=== PATIENT | female | born 1940 | race Caucasian/White ===

== ENCOUNTER 2020-09-01 06:54 | Day surgery (SDC) | payer MEDICARE ==
[2020-08-31 12:00] LABS: ALBUMIN 3.5 G/DL (3.4-5.0); ANION GAP 8 (8-16); BLOOD UREA NITROGEN 32 MG/DL (7-18); BUN/CREATININE RATIO 19.5 (6.6-38.0); CALCIUM 8.9 MG/DL (8.5-10.1); CHLORIDE 110 MMOL/L (99-107); CREATININE 1.64 MG/DL (0.40-0.90); GLUCOSE 105 MG/DL (70-104); SODIUM 143 MMOL/L (135-145); TOTAL CARBON DIOXIDE 25.4 MMOL/L (24-32); eGFR 30 ML/MIN
[2020-08-31 12:01] LABS: BASOPHILS # (AUTO) 0.1 X10'3 (0-0.2); BASOPHILS % (AUTO) 0.7 % (0-1); EOSINOPHILS # (AUTO) 0.3 X10'3 (0-0.9); HEMATOCRIT 39.3 % (35.0-45.0); HEMOGLOBIN 13.1 g/dl (12.0-16.0); LYMPHOCYTES # (AUTO) 1.5 X10'3 (1.1-4.8); LYMPHOCYTES % (AUTO) 19.9 % (21-51); MEAN CORPUSCULAR HEMOGLOBIN 29.9 PG (27.0-31.0); MEAN CORPUSCULAR HGB CONC 33.3 g/dL (33.0-36.5); MEAN CORPUSCULAR VOLUME 89.8 FL (78-98); MEAN PLATELET VOLUME 8.9 FL (7.4-10.4); MONOCYTES # (AUTO) 0.9 X10'3 (0-0.9); MONOCYTES % (AUTO) 11.7 % (2-12); NEUTROPHILS % (AUTO) 63.7 % (42-75); PLATELET COUNT 201 X10'3 (140-440); RED BLOOD COUNT 4.38 X10'6 (4.20-5.60); RED CELL DISTRIBUTION WIDTH 14.9 % (11.5-14.5); WHITE BLOOD COUNT 7.8 X10'3 (4.5-11.0)
[2020-08-31 12:07] LABS: PARTIAL THROMBOPLASTIN TIME 25 SECONDS (22-32)
[2020-09-01] VITALS (10 sets, daily range): BP systolic 111–159; BP diastolic 45–75
[~2020-09-01] VITALS: Ht 175.3 cm; Wt 102.6 kg
[2020-09-01] MEDS ORDERED: normal saline 1000ml 1,000 ML IV SCH (07:35)
[2020-09-01] MEDS ORDERED: ceFAZolin 2gm in dextrose, iso 50 ML IV ONE ×2 (07:35→08:37)
[2020-09-01] MEDS ORDERED: VIT1CAPS4 PO (07:52)
[2020-09-01] MEDS ORDERED: BENA20TA2 PO (07:52)
[2020-09-01] MEDS ORDERED: HYDR12.55 PO (07:52)
[2020-09-01] MEDS ORDERED: OMEG1CAP13 PO (07:52)
[2020-09-01] MEDS ORDERED: RALO60TA13 PO (07:52)
[2020-09-01] MEDS ORDERED: CALC600T22 PO (07:52)
[2020-09-01] MEDS ORDERED: ATEN50TA PO (07:52)
[2020-09-01] MEDS ORDERED: LUTE6CAP PO (07:52)
[2020-09-01] MEDS ORDERED: CHOL100046 PO (07:52)
[2020-09-01] MEDS ORDERED: LACT1CAP65 PO (07:52)
[2020-09-01] MEDS ORDERED: APIX2.5T PO (07:52)
[2020-09-01] MEDS ORDERED: ASPI-1071 PO (07:52)
[2020-09-01] MEDS ORDERED: ceFAZolin 1000mg inj ONE (08:37)
[2020-09-01] MEDS ORDERED: midazolam 2 mg/2 ml injection ONE (08:37)
[2020-09-01] MEDS ORDERED: fentaNYL/PF 50MCG/1 ML 2ML syringe ONE ×2 (08:37→10:58)
[2020-09-01] MEDS ORDERED: LIDOcaine 1% W/epiNEPHrine 1:100,000 20ml vial ONE ×2 (08:37→10:58)
[2020-09-01] MEDS ORDERED: iohexol 350 MG/ML 50ML vial IV ONE (09:48)
[2020-09-01] MEDS ORDERED: vancomycin/NS 1 GM ADD-VANTAGE 250 ML IV ONE (13:00)
== END 2020-09-01 16:00 | disposition home or self-care (01) ==
LOC: SSTAY O 06:54
PROVIDERS: ATTEND Internal Medicine Cardiovascular Disease
DX: I49.5 Sick sinus syndrome (principal); I48.0 Paroxysmal atrial fibrillation; Z45.09 Encounter for adjustment and management of other cardiac device; I12.9 Hypertensive chronic kidney disease with stage 1 through stage 4 chronic kidney disease, or unspecified chronic kidney disease; N18.9 Chronic kidney disease, unspecified; K21.9 Gastro-esophageal reflux disease without esophagitis; M10.9 Gout, unspecified; Z85.828 Personal history of other malignant neoplasm of skin; Z96.651 Presence of right artificial knee joint; Z98.890 Other specified postprocedural states; Z98.51 Tubal ligation status; Z79.82 Long term (current) use of aspirin; Z79.01 Long term (current) use of anticoagulants; Z79.899 Other long term (current) drug therapy; Z87.891 Personal history of nicotine dependence; Z88.8 Allergy status to other drugs, medicaments and biological substances; Z82.49 Family history of ischemic heart disease and other diseases of the circulatory system
CPT/HCPCS: 33208; 33286; 36415; 71046; 80048; 85025; 85610; 85730; 93005; 99152; 99153; C1785; C1894; C1898; J0690; J2250; J3010; J3370; Q9967; A4565; A4620; A6258; A6449

== ENCOUNTER 2020-09-03 10:10 | Emergency (ER) | payer MEDICARE ==
[~2020-09-03] VITALS: Ht 175.3 cm; Wt 82.0 kg
[~2020-09-03 10:10] MED LIST: APIX2.5T PO; ASPI-1071 PO; ATEN50TA PO; BENA20TA2 PO; CALC600T22 PO; CHOL100046 PO; HYDR12.55 PO; LACT1CAP65 PO; LUTE6CAP PO; OMEG1CAP13 PO; RALO60TA13 PO; VIT1CAPS4 PO
[2020-09-03 11:24] LABS: BASOPHILS % (AUTO) 0.5 % (0-1); EOSINOPHILS # (AUTO) 0.3 X10'3 (0-0.9); EOSINOPHILS % (AUTO) 3.4 % (0-6); HEMATOCRIT 37.1 % (35.0-45.0); HEMOGLOBIN 12.5 g/dl (12.0-16.0); LYMPHOCYTES # (AUTO) 0.9 X10'3 (1.1-4.8); LYMPHOCYTES % (AUTO) 11.9 % (21-51); MEAN CORPUSCULAR HEMOGLOBIN 30.1 PG (27.0-31.0); MEAN CORPUSCULAR HGB CONC 33.7 g/dL (33.0-36.5); MEAN CORPUSCULAR VOLUME 89.3 FL (78-98); MEAN PLATELET VOLUME 8.3 FL (7.4-10.4); MONOCYTES # (AUTO) 0.9 X10'3 (0-0.9); MONOCYTES % (AUTO) 11.8 % (2-12); NEUTROPHILS # (AUTO) 5.7 X10'3 (1.8-7.7); NEUTROPHILS % (AUTO) 72.4 % (42-75); PLATELET COUNT 174 X10'3 (140-440); RED BLOOD COUNT 4.16 X10'6 (4.20-5.60); RED CELL DISTRIBUTION WIDTH 14.4 % (11.5-14.5); WHITE BLOOD COUNT 7.9 X10'3 (4.5-11.0)
[2020-09-03 11:38] LABS: ALANINE AMINOTRANSFERASE 20 U/L (12-78); ALBUMIN 3.2 G/DL (3.4-5.0); ALBUMIN/GLOBULIN RATIO 0.9 (1.1-1.5); ALKALINE PHOSPHATASE 75 IU/L (46-116); ANION GAP 11 (8-16); ASPARTATE AMINO TRANSFERASE 16 U/L (10-37); BILIRUBIN,TOTAL 0.8 MG/DL (0.1-1.0); BLOOD UREA NITROGEN 28 MG/DL (7-18); BUN/CREATININE RATIO 18.7 (6.6-38.0); CALCIUM 9.1 MG/DL (8.5-10.1); CHLORIDE 105 MMOL/L (99-107); GLUCOSE 144 MG/DL (70-104); POTASSIUM 3.9 MMOL/L (3.5-5.1); SODIUM 139 MMOL/L (135-145); TOTAL CARBON DIOXIDE 23.5 MMOL/L (24-32); TOTAL PROTEIN 6.6 G/DL (6.4-8.2); eGFR 33 ML/MIN
[2020-09-03 12:20] VITALS: BP 164/80
== END 2020-09-03 12:25 | disposition home or self-care (01) ==
LOC: ER 10:10
DX: R55 Syncope and collapse (principal); Z59.0 Homelessness; Z79.899 Other long term (current) drug therapy
CPT/HCPCS: 36415; 71045; 80053; 83735; 85025; 93005; 99285

== ENCOUNTER 2023-08-23 08:15 | Emergency (ER) | payer MEDICARE ==
[~2023-08-23] VITALS: Ht 175.3 cm; Wt 100.0 kg
[~2023-08-23 08:15] MED LIST changes: +OMEG-5 PO; -OMEG1CAP13 PO
[2023-08-23 08:20] VITALS: TEMP 97.9
[2023-08-23 09:01] LABS: BASOPHILS # (AUTO) 0.1 X10'3 (0-0.2); BASOPHILS % (AUTO) 0.7 % (0-1); EOSINOPHILS # (AUTO) 0.1 X10'3 (0-0.9); EOSINOPHILS % (AUTO) 0.6 % (0-6); HEMATOCRIT 42.8 % (35.0-45.0); HEMOGLOBIN 14.2 g/dl (12.0-16.0); LYMPHOCYTES # (AUTO) 0.9 X10'3 (1.1-4.8); LYMPHOCYTES % (AUTO) 10.1 % (21-51); MEAN CORPUSCULAR HEMOGLOBIN 29.5 PG (27.0-31.0); MEAN CORPUSCULAR HGB CONC 33.2 g/dL (33.0-36.5); MEAN CORPUSCULAR VOLUME 88.9 FL (78-98); MONOCYTES # (AUTO) 1.2 X10'3 (0-0.9); MONOCYTES % (AUTO) 12.7 % (2-12); NEUTROPHILS # (AUTO) 7.1 X10'3 (1.8-7.7); NEUTROPHILS % (AUTO) 75.9 % (42-75); PLATELET COUNT 166 X10'3 (140-440); RED BLOOD COUNT 4.81 X10'6 (4.20-5.60); RED CELL DISTRIBUTION WIDTH 16.6 % (11.5-14.5); WHITE BLOOD COUNT 9.4 X10'3 (4.5-11.0)
[2023-08-23 09:26] LABS: ALANINE AMINOTRANSFERASE 38 U/L (12-78); ALBUMIN 3.2 G/DL (3.4-5.0); ALKALINE PHOSPHATASE 96 IU/L (46-116); ANION GAP 6 (8-16); ASPARTATE AMINO TRANSFERASE 34 U/L (10-37); BILIRUBIN,TOTAL 1.1 MG/DL (0.1-1.0); BLOOD UREA NITROGEN 28 MG/DL (7-18); BUN/CREATININE RATIO 18.4 (10.0-20.0); CALCIUM 8.8 MG/DL (8.5-10.1); CHLORIDE 98 MMOL/L (99-107); CREATININE 1.52 MG/DL (0.40-0.90); GLUCOSE 146 MG/DL (70-104); POTASSIUM 4.4 MMOL/L (3.5-5.1); PRO BRAIN NATRIURETIC PEPTIDE 12694 PG/ML (0-450); SODIUM 129 MMOL/L (135-145); TOTAL CARBON DIOXIDE 25.2 MMOL/L (24-32); TOTAL PROTEIN 6.3 G/DL (6.4-8.2); eCRCL 29 ML/MIN; eGFR 33 ML/MIN
[2023-08-23] MEDS ORDERED: furosemide 10 MG/1 ML 10ml inj IV ONE (09:55)
[2023-08-23] MEDS ORDERED: iohexol 350MG/ML 100ml bottle IV ONE (10:42)
[2023-08-23 11:19] VITALS: O2SAT 95
--- NOTE | 2023-08-23 11:52 | NUR ---
Pt would like henrique Monteiro contacted as needed,
[2023-08-23 12:14] VITALS: BP 142/91; PULSE 90; RESP 22
== END 2023-08-23 13:45 | disposition left against medical advice (07) ==
LOC: ER 08:16
DX: I11.0 Hypertensive heart disease with heart failure (principal); I50.9 Heart failure, unspecified; Z79.899 Other long term (current) drug therapy; Z79.82 Long term (current) use of aspirin
CPT/HCPCS: 36415; 71045; 71250; 71275; 74174; 80053; 83605; 83880; 84484; 85025; 87040; 87502; 87503; 87811; 93005; 96374; 99285; J1940; J3490; Q9967

== ENCOUNTER 2023-11-21 09:26 | Inpatient (IN) | payer MEDICARE ==
[~2023-11-21] VITALS: Ht 175.3 cm; Wt 229.0 kg
[2023-11-21 09:59] LABS: BASOPHILS % (AUTO) 0.6 % (0-1); EOSINOPHILS % (AUTO) 0.6 % (0-6); HEMATOCRIT 44.6 % (35.0-45.0); HEMOGLOBIN 14.1 g/dl (12.0-16.0); LYMPHOCYTES % (AUTO) 12.8 % (21-51); MEAN CORPUSCULAR HEMOGLOBIN 28.3 PG (27.0-31.0); MEAN CORPUSCULAR HGB CONC 31.6 g/dL (33.0-36.5); MEAN CORPUSCULAR VOLUME 89.5 FL (78-98); MEAN PLATELET VOLUME 9.3 FL (7.4-10.4); MONOCYTES # (AUTO) 0.8 X10'3 (0-0.9); MONOCYTES % (AUTO) 10.6 % (2-12); NEUTROPHILS # (AUTO) 5.6 X10'3 (1.8-7.7); NEUTROPHILS % (AUTO) 75.4 % (42-75); PLATELET COUNT 120 X10'3 (140-440); RED BLOOD COUNT 4.98 X10'6 (4.20-5.60); RED CELL DISTRIBUTION WIDTH 16.9 % (11.5-14.5); WHITE BLOOD COUNT 7.5 X10'3 (4.5-11.0)
[2023-11-21 10:08] LABS: ALANINE AMINOTRANSFERASE 27 U/L (12-78); ALBUMIN 3.3 G/DL (3.4-5.0); ALKALINE PHOSPHATASE 104 IU/L (46-116); ANION GAP 10 (8-16); ASPARTATE AMINO TRANSFERASE 29 U/L (10-37); BILIRUBIN,TOTAL 1.8 MG/DL (0.1-1.0); BLOOD UREA NITROGEN 29 MG/DL (7-18); BUN/CREATININE RATIO 21.8 (10.0-20.0); CALCIUM 8.5 MG/DL (8.5-10.1); CHLORIDE 99 MMOL/L (99-107); CREATININE 1.33 MG/DL (0.40-0.90); GLUCOSE 189 MG/DL (70-104); SODIUM 130 MMOL/L (135-145); TOTAL CARBON DIOXIDE 21.2 MMOL/L (24-32); TOTAL PROTEIN 6.7 G/DL (6.4-8.2); eCRCL 33 ML/MIN; eGFR 38 ML/MIN
[2023-11-21 10:09] LABS: APTT 34 SECONDS (22-32); INR 1.4 INR; PROTHROMBIN TIME 14.7 SECONDS (9.0-12.0)
[2023-11-21 10:16] LABS: PRO BRAIN NATRIURETIC PEPTIDE 8200 PG/ML (0-450)
[2023-11-21 10:20] LABS: POTASSIUM 4.5 MMOL/L (3.5-5.1)
[2023-11-21] MEDS: furosemide 10 MG/1 ML 10ml inj IV ONE ×2 (11:39→19:31)
[2023-11-21] MEDS ORDERED: magnesium Cl slow-release 64mg tablet PO PRN (14:20)
[2023-11-21] MEDS ORDERED: magnesium 4gm in 100ml NS 100 ML IV PRN (14:20)
[2023-11-21] MEDS ORDERED: mag hydrox/Alum hydrox/simeth 30ml oral suspension PO PRN (14:20)
[2023-11-21] MEDS ORDERED: potassium Cl 20 mEq SR tablet PO PRN (14:20)
[2023-11-21] MEDS ORDERED: magnesium 2GM in 50ml NS 50 ML IV PRN (14:20)
[2023-11-21] MEDS ORDERED: acetaminophen 325mg tablet PO PRN (14:20)
[2023-11-21] MEDS ORDERED: ondansetron/PF 4mg/2ml inj IV PRN (14:20)
[2023-11-21] MEDS ORDERED: magnesium hydroxide 30ml (MOM) UD suspension PO PRN (14:20)
[2023-11-21] MEDS ORDERED: potassium Cl 40MEQ/1/2NS 520ml 520 ML IV PRN (14:20)
[2023-11-21 18:00] VITALS: BP 121/86; PULSE 87; RESP 15; TEMP 98.4; O2SAT 95
[2023-11-21 20:00] VITALS: RESP 16; O2SAT 94
[2023-11-21] MEDS: K and/or MAG REPLACEMENT MC SCH (20:00)
[2023-11-21] MEDS: docusate sod 100mg capsule PO SCH (20:00)
[2023-11-21] MEDS: apixaban 2.5mg tablet PO SCH (20:27)
[2023-11-21] MEDS: atenolol 50mg tablet PO SCH (20:27)
[2023-11-21 22:00] VITALS: BP 131/89; PULSE 80; RESP 16; TEMP 97.7; O2SAT 94
[2023-11-22] VITALS (8 sets, daily range): BP systolic 115–143; BP diastolic 65–90; PULSE 70–89; RESP 16–18; TEMP 96.4–97.3; O2SAT 93–95
[2023-11-22 06:20] LABS: BASOPHILS # (AUTO) 0.1 X10'3 (0-0.2); BASOPHILS % (AUTO) 0.9 % (0-1); EOSINOPHILS # (AUTO) 0.1 X10'3 (0-0.9); EOSINOPHILS % (AUTO) 1.6 % (0-6); HEMATOCRIT 40.8 % (35.0-45.0); HEMOGLOBIN 13.5 g/dl (12.0-16.0); LYMPHOCYTES # (AUTO) 1.1 X10'3 (1.1-4.8); LYMPHOCYTES % (AUTO) 15.3 % (21-51); MEAN CORPUSCULAR HEMOGLOBIN 28.7 PG (27.0-31.0); MEAN CORPUSCULAR HGB CONC 33.2 g/dL (33.0-36.5); MEAN CORPUSCULAR VOLUME 86.4 FL (78-98); MEAN PLATELET VOLUME 9.3 FL (7.4-10.4); MONOCYTES % (AUTO) 14.8 % (2-12); NEUTROPHILS # (AUTO) 4.7 X10'3 (1.8-7.7); NEUTROPHILS % (AUTO) 67.4 % (42-75); PLATELET COUNT 117 X10'3 (140-440); RED BLOOD COUNT 4.73 X10'6 (4.20-5.60)
[2023-11-22 06:28] LABS: ALANINE AMINOTRANSFERASE 24 U/L (12-78); ALBUMIN 3.1 G/DL (3.4-5.0); ALKALINE PHOSPHATASE 94 IU/L (46-116); ANION GAP 9 (8-16); ASPARTATE AMINO TRANSFERASE 25 U/L (10-37); BILIRUBIN,TOTAL 1.9 MG/DL (0.1-1.0); BLOOD UREA NITROGEN 28 MG/DL (7-18); BUN/CREATININE RATIO 21.4 (10.0-20.0); CALCIUM 8.7 MG/DL (8.5-10.1); CHLORIDE 97 MMOL/L (99-107); CHOL/HDL RATIO 1.9 (0.00-4.99); CHOLESTEROL 80 MG/DL (0-200); CREATININE 1.31 MG/DL (0.40-0.90); GLUCOSE 113 MG/DL (70-104); HDL CHOLESTEROL 43 MG/DL (35-60); LDL CHOLESTEROL 42 MG/DL (50-100); MAGNESIUM 1.7 MG/DL (1.5-2.4); POTASSIUM 3.6 MMOL/L (3.5-5.1); SODIUM 132 MMOL/L (135-145); TOTAL PROTEIN 6.2 G/DL (6.4-8.2); TRIGLYCERIDES 46 MG/DL (20-135); eCRCL 34 ML/MIN; eGFR 39 ML/MIN
[2023-11-22 06:43] LABS: HEMOGLOBIN A1C 6.6 % (4.5-6.2)
[2023-11-22] MEDS: lisinopril 20mg tablet PO SCH (08:30)
[2023-11-22] MEDS: HYDROchlorothiazide 12.5mg capsule PO SCH (08:31)
[2023-11-22] MEDS: furosemide 40mg/4ml inj IV SCH ×2 (08:35→20:28)
[2023-11-22] MEDS ORDERED: DENO60DI SUBCUT (14:43)
[2023-11-22] MEDS ORDERED: AMLO5TAB16 PO (14:43)
[2023-11-22] MEDS ORDERED: ROSU10TA28 PO (14:43)
[2023-11-23 05:35] VITALS: BP 134/83; PULSE 90; RESP 16; TEMP 97.8; O2SAT 94
[2023-11-23 06:45] LABS: BASOPHILS % (AUTO) 0.7 % (0-1); EOSINOPHILS # (AUTO) 0.1 X10'3 (0-0.9); EOSINOPHILS % (AUTO) 1.6 % (0-6); HEMATOCRIT 40.7 % (35.0-45.0); HEMOGLOBIN 13.7 g/dl (12.0-16.0); LYMPHOCYTES % (AUTO) 15.7 % (21-51); MEAN CORPUSCULAR HGB CONC 33.7 g/dL (33.0-36.5); MEAN PLATELET VOLUME 9.2 FL (7.4-10.4); MONOCYTES # (AUTO) 1.1 X10'3 (0-0.9); MONOCYTES % (AUTO) 16.6 % (2-12); NEUTROPHILS # (AUTO) 4.2 X10'3 (1.8-7.7); NEUTROPHILS % (AUTO) 65.4 % (42-75); PLATELET COUNT 120 X10'3 (140-440); RED BLOOD COUNT 4.73 X10'6 (4.20-5.60); RED CELL DISTRIBUTION WIDTH 16.2 % (11.5-14.5); WHITE BLOOD COUNT 6.4 X10'3 (4.5-11.0)
[2023-11-23 07:03] LABS: ALANINE AMINOTRANSFERASE 25 U/L (12-78); ALBUMIN 3.2 G/DL (3.4-5.0); ALBUMIN/GLOBULIN RATIO 1.1 (1.1-1.5); ALKALINE PHOSPHATASE 97 IU/L (46-116); ANION GAP 11 (8-16); ASPARTATE AMINO TRANSFERASE 27 U/L (10-37); BILIRUBIN,TOTAL 2.3 MG/DL (0.1-1.0); BLOOD UREA NITROGEN 29 MG/DL (7-18); BUN/CREATININE RATIO 19.3 (10.0-20.0); CALCIUM 9.2 MG/DL (8.5-10.1); CHLORIDE 93 MMOL/L (99-107); GLUCOSE 108 MG/DL (70-104); MAGNESIUM 1.6 MG/DL (1.5-2.4); POTASSIUM 3.3 MMOL/L (3.5-5.1); SODIUM 132 MMOL/L (135-145); TOTAL CARBON DIOXIDE 28.3 MMOL/L (24-32); TOTAL PROTEIN 6.1 G/DL (6.4-8.2); eCRCL 30 ML/MIN; eGFR 33 ML/MIN
[2023-11-23 07:33] LABS: ANISOCYTOSIS 1+; PLATELET ESTIMATE DECREASED; TOTAL CELLS COUNTED 100
[2023-11-23 07:34] LABS: LARGE PLATELETS FEW
[2023-11-23] MEDS: EMPAGLIFLOZIN 10 MG TABLET PO SCH (08:47)
[2023-11-23] MEDS: spironolactone 25 MG tablet PO SCH (08:48)
[2023-11-23] MEDS: potassium Cl 20 mEq SR tablet PO PRN (09:48)
[2023-11-23 10:00] VITALS: BP 128/80; PULSE 74; RESP 15; TEMP 96.7; O2SAT 96
[2023-11-23] MEDS ORDERED: EMPA10TA PO (12:26)
[2023-11-23] MEDS ORDERED: SPIR25TA PO (12:26)
[2023-11-23] MEDS ORDERED: FURO20TA4 PO (12:26)
== END 2023-11-23 14:55 | disposition home or self-care (01) | DRG 291 ==
LOC: ER 09:27 → ED HOLD 14:52 → ORTHO 4S 17:35
PROVIDERS: ADMIT Family Medicine; ATTEND Family Medicine
DX: I13.0 Hypertensive heart and chronic kidney disease with heart failure and stage 1 through stage 4 chronic kidney disease, or unspecified chronic kidney disease (principal); I50.21 Acute systolic (congestive) heart failure; E87.1 Hypo-osmolality and hyponatremia; N18.9 Chronic kidney disease, unspecified; I49.5 Sick sinus syndrome; K21.9 Gastro-esophageal reflux disease without esophagitis; I48.0 Paroxysmal atrial fibrillation; M10.9 Gout, unspecified; E78.00 Pure hypercholesterolemia, unspecified; E11.22 Type 2 diabetes mellitus with diabetic chronic kidney disease; Z20.822 Contact with and (suspected) exposure to COVID-19; Z96.651 Presence of right artificial knee joint; Z79.01 Long term (current) use of anticoagulants; Z95.0 Presence of cardiac pacemaker; Z79.82 Long term (current) use of aspirin; Z79.899 Other long term (current) drug therapy; Z98.51 Tubal ligation status; Z85.828 Personal history of other malignant neoplasm of skin; Z86.73 Personal history of transient ischemic attack (TIA), and cerebral infarction without residual deficits; Z87.891 Personal history of nicotine dependence
CPT/HCPCS: 36415; 71045; 80053; 80061; 83036; 83735; 83880; 84145; 84484; 85007; 85025; 85610; 85730; 87081; 87811; 93005; 93306; 99285; A6258; G0378; J1940

== ENCOUNTER 2023-12-12 10:02 | Day surgery (SDC) | payer MEDICARE ==
[2023-12-11 12:44] LABS: BASOPHILS # (AUTO) 0.1 X10'3 (0-0.2); EOSINOPHILS # (AUTO) 0.1 X10'3 (0-0.9); EOSINOPHILS % (AUTO) 1.9 % (0-6); HEMATOCRIT 48.3 % (35.0-45.0); HEMOGLOBIN 15.7 g/dl (12.0-16.0); LYMPHOCYTES # (AUTO) 1.1 X10'3 (1.1-4.8); LYMPHOCYTES % (AUTO) 17.1 % (21-51); MEAN CORPUSCULAR HEMOGLOBIN 28.7 PG (27.0-31.0); MEAN CORPUSCULAR HGB CONC 32.5 g/dL (33.0-36.5); MEAN CORPUSCULAR VOLUME 88.4 FL (78-98); MEAN PLATELET VOLUME 8.7 FL (7.4-10.4); MONOCYTES # (AUTO) 0.9 X10'3 (0-0.9); MONOCYTES % (AUTO) 13.5 % (2-12); NEUTROPHILS # (AUTO) 4.3 X10'3 (1.8-7.7); NEUTROPHILS % (AUTO) 66.5 % (42-75); PLATELET COUNT 192 X10'3 (140-440); RED BLOOD COUNT 5.47 X10'6 (4.20-5.60); RED CELL DISTRIBUTION WIDTH 16.3 % (11.5-14.5); WHITE BLOOD COUNT 6.4 X10'3 (4.5-11.0)
[2023-12-11 12:58] LABS: ALBUMIN 3.6 G/DL (3.4-5.0); ANION GAP 12 (8-16); APTT 27 SECONDS (22-32); BLOOD UREA NITROGEN 66 MG/DL (7-18); BUN/CREATININE RATIO 31.9 (10.0-20.0); CALCIUM 9.8 MG/DL (8.5-10.1); CHLORIDE 102 MMOL/L (99-107); CREATININE 2.07 MG/DL (0.40-0.90); GLUCOSE 102 MG/DL (70-104); INR 1.1 INR; POTASSIUM 4.3 MMOL/L (3.5-5.1); PROTHROMBIN TIME 11.4 SECONDS (9.0-12.0); SODIUM 140 MMOL/L (135-145); TOTAL CARBON DIOXIDE 26.4 MMOL/L (24-32); eGFR 23 ML/MIN
[~2023-12-12] VITALS: Ht 175.3 cm; Wt 95.1 kg
[2023-12-12] VITALS (13 sets, daily range): BP systolic 96–134; BP diastolic 55–81; PULSE 80–81; RESP 12–17; TEMP 98.4; O2SAT 95–99
[~2023-12-12 10:02] MED LIST changes: +AMLO5TAB16 PO; +DENO60DI SUBCUT; +EMPA10TA PO; +FURO20TA4 PO; +ROSU10TA28 PO; +SPIR25TA PO
[2023-12-12] MEDS ORDERED: sodium bicarbonate 1meq/ml syr 150 ML in dextrose 5%-water 1,000 ML IV SCH (10:20)
[2023-12-12] MEDS ORDERED: normal saline 1,000 ML IV SCH (10:20)
[2023-12-12] MEDS ORDERED: acetylcysteine 200 MG/ml 4ml vial PO PRN (10:25)
[2023-12-12] MEDS ORDERED: sodium bicarbonate 1meq/ml syr 150 ML in dextrose 5%-water 1,000 ML IV ONE (10:45)
[2023-12-12] MEDS ORDERED: FURO-150 PO (11:12)
[2023-12-12] MEDS ORDERED: SPIR25TA5 PO (11:12)
[2023-12-12] MEDS ORDERED: EMPA10TA PO (11:24)
[2023-12-12] MEDS: LORazepam 0.5 MG tablet PO PRN (12:02)
[2023-12-12] MEDS: diphenhydrAMINE 25mg capsule PO PRN (12:02)
[2023-12-12] MEDS ORDERED: LIDOcaine 1% (10mg/ml) 2ml vial ONE (12:03)
[2023-12-12] MEDS ORDERED: verapamil 2.5 mg/ml inj IV ONE (12:03)
[2023-12-12] MEDS ORDERED: midazolam 1 mg/ML 2ml injection ONE (12:03)
[2023-12-12] MEDS ORDERED: iohexol 350 MG/ML 50ML vial IV ONE (12:04)
[2023-12-12] MEDS ORDERED: nitroGLYCERIN 500mcg/5mL D5W 5 ML IV ONE (12:04)
[2023-12-12] MEDS ORDERED: iohexol 350MG/ML 100ml bottle IV ONE (12:04)
[2023-12-12] MEDS ORDERED: heparin 1,000unit/ml 10ml vial 10 ML ONE (12:04)
[2023-12-12] MEDS ORDERED: fentaNYL/PF 50MCG/1 ML 2ML syringe ONE (12:04)
[2023-12-12] MEDS ORDERED: LIDOcaine 1% 30ml preserv. free vial ONE (13:04)
[2023-12-12 13:32] LABS: ISTAT HGB ART 15.3 g/dl (12.0-16.0); ISTAT Hct ART 45 %PCV (35-45); ISTAT O2 SATURATION ARTERIAL 90 % (95-98); ISTAT SOURCE ART
[2023-12-12] MEDS ORDERED: OXAZEpam 15mg capsule PO PRN (14:25)
[2023-12-12] MEDS ORDERED: proCHLORperazine 10 MG/2 ml inj IV PRN (14:25)
[2023-12-12] MEDS ORDERED: ondansetron/PF 4mg/2ml inj IV PRN (14:25)
[2023-12-12 15:40] LABS: ISTAT HGB MIX 15.3 g/dl (12.0-16.0); ISTAT Hct MIX 45 %PCV (35-45); ISTAT O2 SATURATION MIX VENOUS 66 % (60-80); ISTAT SOURCE VEN
== END 2023-12-12 19:30 | disposition home or self-care (01) ==
LOC: SSTAY O 10:02
PROVIDERS: ATTEND Internal Medicine Cardiovascular Disease
DX: I42.0 Dilated cardiomyopathy (principal); I13.0 Hypertensive heart and chronic kidney disease with heart failure and stage 1 through stage 4 chronic kidney disease, or unspecified chronic kidney disease; N18.9 Chronic kidney disease, unspecified; I50.22 Chronic systolic (congestive) heart failure; E78.5 Hyperlipidemia, unspecified; I48.0 Paroxysmal atrial fibrillation; K21.9 Gastro-esophageal reflux disease without esophagitis; M10.9 Gout, unspecified; Z79.01 Long term (current) use of anticoagulants; Z79.899 Other long term (current) drug therapy; Z85.828 Personal history of other malignant neoplasm of skin; Z90.89 Acquired absence of other organs; Z98.51 Tubal ligation status; Z96.651 Presence of right artificial knee joint; Z95.0 Presence of cardiac pacemaker; Z98.890 Other specified postprocedural states; Z88.8 Allergy status to other drugs, medicaments and biological substances; Z82.49 Family history of ischemic heart disease and other diseases of the circulatory system; Z80.9 Family history of malignant neoplasm, unspecified
CPT/HCPCS: 36415; 80048; 82803; 82948; 85014; 85025; 85610; 85730; 93005; 93460; 99152; 99153; J1644; J2250; J3010; J3490; J7030; Q0163; Q9967; A6258; C1725; C1751; C1760; C1894